=== PATIENT | female | born 1955 | race Caucasian/White ===

== ENCOUNTER 2016-06-11 01:39 | Emergency (ER) | payer OTHER ==
[~2016-06-11] VITALS: Ht 154.9 cm; Wt 55.3 kg
[~2016-06-11 01:39] MED LIST: ACET325 PO; AUGM500T7 PO
--- NOTE | 2016-06-11 02:14 | PD ---
HPI Chief Complaint: GI Complaint Time Seen by Provider: 02:11 Travel History International Travel<30 days: No Contact w/Intl Traveler<30days: No Traveled to known affect area: No History of Present Illness HPI The patient is a 60-year-old female who complains of bilateral lower abdominal pain and bloody stools since 7 PM this evening. She denies any fever, nausea or vomiting. She does have a history of colitis in the past, in 2013 she had a similar episode. She denies any syncopal or near syncopal episodes. She is not on any anticoagulants. She has had both appendectomy and cholecystectomy. PFSH Past Medical History Arthritis: No Asthma: No Autoimmune Disease: No Depression: Yes (FOLLOWING [facility]. NOT ON MEDS AT THIS TIME) Heart Rhythm Problems: No Cancer: No Cardiovascular Problems: No High Cholesterol: No Chemotherapy: No Chest Pain: No Congestive Heart Failure: No COPD: No Cerebrovascular Accident: No Diabetes: No Diminished Hearing: No Endocrine: No GERD: Yes Genitourinary: No Hiatal Hernia: No Immune Disorder: No Kidney Stones: No Musculoskeletal: No Neurologic: No Psychiatric: No Reproductive: No Respiratory: No Migraines: No Radiation Therapy: No Renal Failure: No Seizures: No Sickle Cell Disease: No Sleep Apnea: No Thyroid Disease: No Ulcer: No ?: Not Menopausal: Yes : 3 Para: 3 Past Surgical History Abdominal Surgery: Yes (appy, eusebio) AICD: No Appendectomy: Yes Arteriovenous Shunt: No Cardiac Surgery: No Section: Yes (X1) Cholecystectomy: Yes Ear Surgery: No Endocrine Surgery: No Eye Surgery: No Genitourinary Surgery: No Gynecologic Surgery: Yes () Insulin Pump: No Joint Replacement: No Oral Surgery: No Pacemaker: No Thoracic Surgery: Yes (chest augmentation) Other Surgery: Yes (BREAT AUGMENTATION) Social History Alcohol Use: Yes (OCCASIONAL) Tobacco Use: No Substance Use: No Allergies-Medications (Allergen,Severity, Reaction): Coded Allergies: Levaquin (Verified Allergy, Severe, FACIAL EDEMA, 08/05/13) Latex (Verified Allergy, Mild, 05/02/10) Codeine (Verified Adverse Reaction, Intermediate, VOMITING, ABDOMINAL PAIN , 05/02/10) Erythromycin (Verified Adverse Reaction, Intermediate, VOMITING AND ABDOMINAL PAIN, 05/02/10) Flagyl (Verified Adverse Reaction, Intermediate, VOMITING AND ABDOMINAL PAIN, 05/02/10) Lortab (Verified Adverse Reaction, Intermediate, Nausea/Vomiting, 05/02/10 ) Morphine (Verified Adverse Reaction, Intermediate, Hallucinations, ) Sulfa (Verified Adverse Reaction, Intermediate, VOMITIG AND ABDOMINAL PAIN , 05/02/10) Uncoded Allergies: STEROIDS (Allergy, Severe, FACE TURNS RED, 08/05/13) Reported Meds & Prescriptions Reported Meds & Active Scripts Active Reported Wellbutrin SR 12 HR (Bupropion HCl) 100 Mg Tab 100 Mg PO DAILY Review of Systems Except as stated in HPI: all other systems reviewed are Neg Physical Exam Narrative GENERAL: The patient is alert, oriented 3 and slight apparent distress with her bilateral abdominal pain. SKIN: Warm and dry. HEAD: Atraumatic. Normocephalic. EYES: Pupils equal and round. No scleral icterus. No injection or drainage. ENT: No nasal bleeding or discharge. Mucous membranes pink and moist. NECK: Trachea midline. No JVD. CARDIOVASCULAR: Regular rate and rhythm. No murmur appreciated. RESPIRATORY: No accessory muscle use. Clear to auscultation. Breath sounds equal bilaterally. GASTROINTESTINAL: Abdomen soft, with tenderness to direct palpation in the bilateral lower quadrants, nondistended. Hepatic and splenic margins not palpable. No guarding or rebound is present. MUSCULOSKELETAL: No obvious deformities. No clubbing. No cyanosis. No edema. NEUROLOGICAL: Awake and alert. No obvious cranial nerve deficits. Motor grossly within normal limits. Normal speech. PSYCHIATRIC: Appropriate mood and affect; insight and judgment normal. RECTAL EXAM: No masses or tenderness, stool is brown and guaiac positive. Data Data Last Documented VS Vital Signs Date Time Temp Pulse Resp B/P Pulse Ox O2 Delivery O2 Flow Rate FiO2 06/11/16 02:31 Room Air Orders Complete Blood Count With Diff (06/11/16 02:14) Comprehensive Metabolic Panel (06/11/16 02:14) Lipase (06/11/16 02:14) Prothrombin Time / Inr (Pt) (06/11/16 02:14) Act Partial Throm Time (Ptt) (06/11/16 02:14) Urinalysis - C+S If Indicated (06/11/16 02:14) Ecg Monitoring (06/11/16 02:14) Iv Access Insert/Monitor (06/11/16 02:14) Oximetry (06/11/16 02:14) Sodium Chloride 0.9% Flush (Ns Flush) (06/11/16 02:15) Ct Abd/Pel W Iv Contrast(Rout) (06/11/16 02:14) Iohexol 350 Inj (Omnipaque 350 Inj) (06/11/16 03:50) Labs Laboratory Tests Test 06/11/16 02:21 White Blood Count 7.5 TH/MM3 Red Blood Count 4.79 MIL/MM3 Hemoglobin 14.2 GM/DL Hematocrit 42.5 % Mean Corpuscular Volume 88.8 FL Mean Corpuscular Hemoglobin 29.7 PG Mean Corpuscular Hemoglobin 33.5 % Concent Red Cell Distribution Width 12.6 % Platelet Count 280 TH/MM3 Mean Platelet Volume 7.5 FL Neutrophils (%) (Auto) 70.1 % Lymphocytes (%) (Auto) 20.3 % Monocytes (%) (Auto) 6.0 % Eosinophils (%) (Auto) 0.6 % Basophils (%) (Auto) 3.0 % Neutrophils # (Auto) 5.3 TH/MM3 Lymphocytes # (Auto) 1.5 TH/MM3 Monocytes # (Auto) 0.5 TH/MM3 Eosinophils # (Auto) 0.0 TH/MM3 Basophils # (Auto) 0.2 TH/MM3 CBC Comment DIFF FINAL Differential Comment Prothrombin Time 12.2 SEC Prothromb Time International 1.1 RATIO Ratio Activated Partial 30.6 SEC Thromboplast Time Urine Color YELLOW Urine Turbidity CLEAR Urine pH 6.0 Urine Specific [place] 1.025 Urine Protein NEG mg/dL Urine Glucose (UA) NEG mg/dL Urine Ketones NEG mg/dL Urine Occult Blood TRACE Urine Nitrite NEG Urine Bilirubin NEG Urine Leukocyte Esterase TRACE Urine RBC 0-3 /hpf Urine WBC 3-5 /hpf Urine Squamous Epithelial 0-5 /hpf Cells Urine Bacteria NONE /hpf Microscopic Urinalysis Comment CULT NOT INDICATED Sodium Level 144 MEQ/L Potassium Level 4.0 MEQ/L Chloride Level 112 MEQ/L Carbon Dioxide Level 23.9 MEQ/L Anion Gap 8 MEQ/L Blood Urea Nitrogen 16 MG/DL Creatinine 0.67 MG/DL Estimat Glomerular Filtration 89 ML/MIN Rate Random Glucose 96 MG/DL Calcium Level 9.0 MG/DL Total Bilirubin 0.3 MG/DL Aspartate Amino Transf 16 U/L (AST/SGOT) Alanine Aminotransferase 33 U/L (ALT/SGPT) Alkaline Phosphatase 99 U/L Total Protein 7.8 GM/DL Albumin 3.8 GM/DL Lipase 175 U/L MDM Medical Decision Making Medical Screen Exam Complete: Yes Emergency Medical Condition: Yes Medical Record Reviewed: Yes Interpretation(s) The CBC is normal. The coagulation profile shows a ProTime of 12.2, INR 1.1 and a PTT of 30.6. The complete metabolic profile is normal. The lipase is normal. The urine shows trace occult blood and trace leukocyte esterase but is otherwise normal and culture is not indicated. The CT abdomen/pelvis with IV contrast shows no acute abnormality, colonic diverticulosis and prior cholecystectomy. Differential Diagnosis Colitis, bleeding polyp, diverticulitis, electrolyte disorder, coagulopathy, anemia, dehydration, urinary tract infection Narrative Course The CT scanner at this time is nonoperative and we will have to send the patient to [facility] to get a CAT scan with contrast of the abdomen/ pelvis. Impression: Mild colitis The patient gets severe stomach upset with Flagyl. She doesn't remember any reaction or if she has ever had Cipro. She gets lip swelling with Levaquin. Plan: The patient be put on Cipro 500 mg twice daily and follow up with gastroenterology. Diagnosis Primary Impression: Colitis Additional Instructions: Stick with clear liquids the next 24-48 hours. The idea is to rest your intestines. Take the Cipro twice daily for 10 days. If you think you are getting a reaction to Cipro immediately discontinue it. Med/Other Pt SpecificInfo: Prescription(s) given Scripts Ciprofloxacin (Cipro)500 Mg [id number] Mg PO BID 10 Days Ref 0 Prov:Robbin Meade MD 06/11/16 Disposition: 01 DISCHARGE HOME Condition: Stable Robbin Meade MD Jun 11, 2016 02:14
[2016-06-11] MEDS ORDERED: SODIUM CHLORIDE 0.9% FLUSH 5 ML FLUSH IVF PRN (02:15)
[2016-06-11] MEDS ORDERED: BUPR100CR PO (02:20)
[2016-06-11 02:42] LABS: BLOOD, URINE TRACE (NEG); GLUCOSE,URINE NEG (NEG); KETONE, URINE NEG (NEG); NITRITE,URINE NEG (NEG)
[2016-06-11 02:47] LABS: AUTOMATED NEUTROPHIL # 5.3 TH/MM3 (1.8-7.7); BASOPHIL # 0.2 TH/MM3 (0-0.2); EOSINOPHIL % 0.6 % (0.0-4.0); HEMATOCRIT 42.5 % (35.0-46.0); HEMO FLAGS DIFF FINAL; LYMPH % 20.3 % (9.0-44.0); LYMPHOCYTE # 1.5 TH/MM3 (1.0-4.8); MEAN CELL VOLUME 88.8 FL (80.0-100.0); MEAN CORPUSCULAR HEMOGLOBIN 29.7 PG (27.0-34.0); MEAN CORPUSCULAR HGB CONC 33.5 % (32.0-36.0); NEUT % 70.1 % (16.0-70.0); PLATELET COUNT 280 TH/MM3 (150-450); RED BLOOD COUNT 4.79 MIL/MM3 (4.00-5.30); RED CELL DISTRIBUTION WIDTH 12.6 % (11.6-17.2); URINE COLOR YELLOW (YELLW/STRAW); WHITE BLOOD COUNT 7.5 TH/MM3 (4.0-11.0)
[2016-06-11 02:48] LABS: COMMENT (UR) CULT NOT INDICATED; CULTURE IF INDICATED CULT NOT INDICATED; RBC, URINE 0-3 /hpf (0-3); SQUAMOUS EPITHELIAL CELL URINE 0-5 /hpf (0-5)
[2016-06-11 02:50] LABS: CHLORIDE 112 MEQ/L (98-107); SODIUM (NA) 144 MEQ/L (136-145)
[2016-06-11 02:53] LABS: ANION GAP 8 MEQ/L (5-15); BICARBONATE 23.9 MEQ/L (21.0-32.0)
[2016-06-11 02:54] LABS: APTT (PATIENT) 30.6 SEC (24.3-30.1); BLOOD UREA NITROGEN 16 MG/DL (7-18); INTERNATIONAL NORMALIZED RATIO 1.1 RATIO; PROTHROMBIN TIME - PATIENT 12.2 SEC (9.8-11.6)
[2016-06-11 02:56] LABS: ALT (GPT) 33 U/L (10-53); AST (GOT) 16 U/L (15-37); GLOMERULAR FILTRATION RATE 89 ML/MIN (>89)
[2016-06-11 02:58] LABS: TOTAL BILIRUBIN ADULT 0.3 MG/DL (0.2-1.0)
[2016-06-11 02:59] LABS: ALKALINE PHOSPHATASE 99 U/L (45-117)
[2016-06-11] MEDS ORDERED: IOHEXOL 350 MG/ML 10 ML VIAL (for RAD DIAG) IV ONE (03:50)
[2016-06-11 04:00] VITALS: BP 141/62; PULSE 78; RESP 18; O2SAT 98
--- NOTE | 2016-06-11 04:32 | RADHPO ---
EXAM DATE/TIME: 06/11/2016 03:42 [facility] COMPARISON: CT ABDOMEN & PELVIS W CONTRAST, August 06, 2013, 0:04. INDICATIONS : Low abdomen pain with blood in stool. IV CONTRAST: 80 cc Omnipaque 350 (iohexol) IV ORAL CONTRAST: No oral contrast ingested. RADIATION DOSE: 4.85 CTDIvol (mGy) MEDICAL HISTORY : Gastroesophageal reflux disease. Colitis SURGICAL HISTORY : Cholecystectomy. Appendectomy. ENCOUNTER: Initial ACUITY: 1 day PAIN SCALE: 5/10 LOCATION: Bilateral low abdomen TECHNIQUE: Volumetric scanning of the abdomen and pelvis was performed. Using automated exposure control and ad justment of the mA and/or kV according to patient size, radiation dose was kept as low as reasonably achievable to obtain optimal diagnostic quality images. FINDINGS: LOWER LUNGS: The visualized lower lungs are clear. LIVER: Homogeneous density without lesion. There is no dilation of the biliary tree. Prior cholecystectomy. SPLEEN: Normal size without lesion. PANCREAS: Within normal limits. KIDNEYS: Normal in size and shape. There is no mass, stone or hydronephrosis. ADRENAL GLANDS: Within normal limits. VASCULAR: There is no aortic aneurysm. BOWEL/MESENTERY: The stomach, small bowel, and colon demonstrate no acute abnormality. There is no free intraperitone al air or fluid. Scattered colonic diverticuli without inflammation. ABDOMINAL WALL: Within normal limits. RETROPERITONEUM: There is no lymphadenopathy. BLADDER: No wall thickening or mass. REPRODUCTIVE: Within normal limits. INGUINAL: There is no lymphadenopathy or hernia. MUSCULOSKELETAL: Within normal limits for patient age. CONCLUSION: 1. No acute abnormality. 2. Colonic diverticulosis. 3. Prior cholecystectomy. Dar Olea Jr., MD on June 11, 2016 at 4:28 Board Certified Radiologist. This report was verified electronically.
[2016-06-11 05:00] VITALS: BP 137/80; PULSE 83; RESP 17; O2SAT 99
[2016-06-11] MEDS ORDERED: CIPR-9 PO (05:11)
[2016-06-11] MEDS ORDERED: CIPROFLOXACIN 500 MG TAB PO ONE (05:15)
[2016-06-11 06:09] VITALS: BP 123/77
== END 2016-06-11 05:55 | disposition home or self-care (01) ==
LOC: PHED 01:39
DX: K52.9 Noninfective gastroenteritis and colitis, unspecified (principal)
CPT/HCPCS: 74177; 80053; 81001; 83690; 85025; 85610; 85730; 99285; Q9967

== ENCOUNTER 2016-06-18 07:49 | Day surgery (SDC) | payer OTHER ==
[~2016-06-18] VITALS: Ht 154.9 cm; Wt 53.6 kg
[2016-06-18] VITALS (9 sets, daily range): BP systolic 97–128; BP diastolic 64–97; PULSE 63–80; RESP 18–20; TEMP 98–98.6; O2SAT 92–97
[~2016-06-18 07:49] MED LIST changes: -ACET325 PO; -AUGM500T7 PO; +BUPR100CR PO; +CIPR-9 PO
[2016-06-18] MEDS ORDERED: SODIUM CHLOR 0.9% 1000 ML INJ 1,000 ML IV SCH ×2 (08:30→12:12)
[2016-06-18] MEDS ORDERED: MIDAZOLAM HCL 5 MG/5 ML VIAL ONE (10:14)
[2016-06-18] MEDS ORDERED: fentaNYL CITRATE 250 MCG/5 ML AMP ONE (10:15)
[2016-06-18] MEDS ORDERED: ONDANSETRON HCL 4 MG/2 ML VIAL ONE (10:15)
[2016-06-18] MEDS ORDERED: GLUCAGON 1 MG/ML VIAL ONE (11:15)
[2016-06-18] MEDS ORDERED: VERAPAMIL HCL 5 MG/2 ML VIAL ONE (11:53)
[2016-06-18] MEDS ORDERED: IODIXANOL 320 MG/ML 50 ML VIAL (for RAD SPEC) I-ARTERIAL ONE (12:04)
[2016-06-18] MEDS ORDERED: ACETAMINOPHEN 325 MG TAB PO PRN (12:15)
[2016-06-18] MEDS ORDERED: oxyCODONE/ACETAMINOPHEN 5 MG/325 MG TAB PO PRN (12:15)
--- NOTE | 2016-06-18 12:15 | PD.RAD ---
Post Procedure Progress Note Pre Procedure Diagnosis: (1) Colitis Post Procedure Diagnosis: (1) Colitis Procedure Date: Jun 18, 2016 Supervising Radiologist: Theodore Crowley Proceduralist/Assist: RT Christiano(R)() Anesthesia: Local, Conscious Sedation Plan of Activity Patient to Unit: ROPU Patient Condition: Good See PACS Report for procedural detail/treatment Vascular-Arterial Procedure Procedure 1 Procedure Site: Superior Mesenteric Artery Procedure(s): Angiogram Access Access Site(s): Right Femoral Artery Closure Site(s): Right vascular closure device Theodore Crowley MD Jun 18, 2016 12:15
--- NOTE | 2016-06-18 16:14 | RADRPT ---
EXAM DATE/TIME: 06/18/2016 10:31 [facility] COMPARISON: No previous studies available for comparison. INDICATIONS : Patient with abdomin pain. Moderate to severe. History of ischemic colitis. Evaluate for signs of vas culitis. MEDICAL HISTORY : 1.Diverticulitis SURGICAL HISTORY : 1. C section 2. Choley 3. exploratory Isaiah ENCOUNTER: Initial ACUITY: 1 week FLUORO TIME: 7.4 minutes ACCESS SITE: Right Femoral artery SEDATION TIME: 60 minutes CONTRAST: 1.) 100 cc Visipaque (iodixanol) MEDICATION(S): 1.) 3 mg midazolam (Versed) IV 2.) 150 mcg fentanyl (Sublimaze) IV 3.) 5 mg Verapamil IART 4.) 4 mg ondansetron (Zofran) IV DEVICE(S): 1.) Right common femoral artery star close PROCEDURE : 1. Ultrasound-guided puncture of the right common femoral artery access site. 2. Angiography of the right common femoral artery access site prior to closure device. 3. Conscious sedation with continuous EKG and Oximetry monitoring. 4. Percutaneous closure of the right common femoral artery access site. 5. selective catheterization, superior mesenteric artery. 6. Angiography of the superior mesenteric artery with aortography 7. selective catheterization, inferior mesenteric artery 8. Inferior mesenteric arteriography 9. Selective catheterization, left renal artery. 10. Selective left renal arteriography. The patient was placed supine on the angiography table. The right groin was prepped in sterile fashio n. Full sterile technique was used, including cap, mask, sterile gloves and gown and a large sterile sheet. Hand hygiene and 2% chlorhexidine and/or betadine/alcohol prep was utilized per protocol for c utaneous antisepsis. The skin and subcutaneous tissues were infiltrated with lidocaine solution. Blun t dissection was utilized to free up the tissues superficial to the common femoral artery. Under dire ct ultrasound guidance, micropuncture access was accomplished into the common femoral artery allowing placement of a 4 [place] vascular sheath. The ultrasound images depicting access guidance were saved and stored to PACS for permanent record. A 4 [place] Omni flush catheter was inserted with position in the upper abdominal aorta. Distal subtra ction abdominal aortography was performed. A 4 [place] Cobra catheter was then introduced and used to select the superior mesenteric artery. Georgie ctive superior mesenteric arteriography was then performed in multiple projections. The Cobra catheter was then used to select the left renal artery and left renal arteriography was per formed. A 4 [place] hook catheter was introduced and used to select the inferior mesenteric artery. Selective inferior mesenteric artery was performed in multiple projections with and without administration of s pasmolytic/vasodilator. The right femoral sheath was used to perform sheath arteriography. The catheter and sheath were remov ed and the right femoral arteriotomy was closed with the Starclose device. Conscious sedation was performed with the prescribed dosages and duration as above. EKG and oximetr y remained stable throughout the procedure. The patient was sent to post anesthesia recovery in stab le condition. FINDINGS: The abdominal aorta and iliacs are widely patent. The aortic visceral vessels all appear widely paten t and unremarkable. The internal iliac vessels and branches are widely patent. A replaced hepatic art jerry is noted arising from the proximal superior mesenteric artery. The superior mesenteric artery and branches are widely patent and unremarkable. There is no evidence of stenosis or occlusion and there are no specific findings of vasculitis. Normal tapering and branching is evident throughout the vasc ulature with no vessel irregularity, stenosis or cutoff. There is no evidence of hypervascularity or neovascularity. The inferior mesenteric artery and branches are similarly unremarkable. The left libby l artery and branches are widely patent and unremarkable. Specifically, there is no evidence of vascu litic change in the renal vessels. CONCLUSION: Unremarkable mesenteric arteriography. No signs of vasculitis in the abdominal or pelvic circulation. Theodore Crowley MD on June 18, 2016 at 15:18 Board Certified Radiologist. This report was verified electronically.
== END 2016-06-18 15:30 | disposition home or self-care (01) ==
LOC: HROP 07:49 → HRIP 07:50 → HROP 15:30
DX: K52.9 Noninfective gastroenteritis and colitis, unspecified (principal); R10.9 Unspecified abdominal pain
CPT/HCPCS: 36245; 75726; 75774; 76937; 99152; 99153; C1760; C1769; C1887; C1894; G0269; J1610; J2250; J2405; J3010; J7030; Q9967

== ENCOUNTER 2016-06-25 13:17 | Day surgery (SDC) | payer OTHER ==
[~2016-06-25 13:17] MED LIST changes: -CIPR-9 PO
[2016-06-25 13:34] VITALS: BP 114/77; PULSE 76; RESP 20; TEMP 98.1; O2SAT 95
== END 2016-06-25 13:40 | disposition home or self-care (01) ==
LOC: HROP 13:17 → HRIP 13:18 → HROP 13:40
PROVIDERS: ATTEND Radiology Body Imaging
DX: K55.059 Acute (reversible) ischemia of intestine, part and extent unspecified (principal)